=== PATIENT | male | born 1965 | race Caucasian/White ===

== ENCOUNTER → 2021-03-25 | Outpatient (CLI) | payer BC ==
[~2021-03-25] MED LIST: ATOR10TA60 PO; BUPR150T15 PO; ERTU1TAB9 PO; OMEP40CA7 PO; OXYC-325 PO
== END ==
LOC: LAB 10:02
PROVIDERS: ATTEND Surgery
DX: Z01.812 Encounter for preprocedural laboratory examination (principal); Z20.822 Contact with and (suspected) exposure to COVID-19; K40.90 Unilateral inguinal hernia, without obstruction or gangrene, not specified as recurrent
CPT/HCPCS: U0003; U0005

== ENCOUNTER 2021-03-27 09:55 | Day surgery (SDC) | payer BC ==
[~2021-03-27] VITALS: Ht 175.3 cm; Wt 100.5 kg
[~2021-03-27 09:55] MED LIST changes: +ACETAMINOPHEN 500 MG TABLET PO PRN; -ATOR10TA60 PO; +BUPIVACAINE-EPI 0.25%-1:200000 MPF 30 ML VIAL. ONE; -BUPR150T15 PO; -ERTU1TAB9 PO; +HYDROmorphone 2 MG/ML VIAL IVP PRN; +IV RINGERS,LACTATED 1000ML 1,000 ML IV SCH; +MINERAL OIL for SURGERY 10 ML VIAL. MC ONE; -OMEP40CA7 PO; -OXYC-325 PO; +PROCHLORPERAZINE 10 MG/2 ML VIAL. IVP PRN; +fentaNYL PF VIAL 100 MCG/2 ML VIAL IVP PRN
[2021-03-27] MEDS ORDERED: ATOR10TA60 PO (10:15)
[2021-03-27] MEDS ORDERED: BUPR150T15 PO (10:15)
[2021-03-27] MEDS ORDERED: ERTU1TAB9 PO (10:15)
[2021-03-27] MEDS ORDERED: OMEP40CA7 PO (10:15)
[2021-03-27 10:18] VITALS: BP 159/89
[2021-03-27] MEDS ORDERED: ROCURONIUM 50 MG/5 ML VIAL. ONE (10:25)
[2021-03-27] MEDS ORDERED: KETAMINE HCL IN NACL, ISO-OSM 50 MG/5 ML SYRINGE ONE (10:25)
[2021-03-27] MEDS ORDERED: LIDOCAINE 2% PF 5 ML VIAL. ONE (10:25)
[2021-03-27] MEDS ORDERED: PROPOFOL 10 MG/ML (20ML) VIAL. IV ONE ×2 (10:25→11:22)
[2021-03-27] MEDS ORDERED: MIDAZOLAM HCL/PF 2 MG/2 ML VIAL. ONE (10:25)
[2021-03-27] MEDS ORDERED: fentaNYL PF VIAL 250 MCG/5 ML VIAL ONE (10:34)
[2021-03-27] MEDS ORDERED: DEXAMETHASONE SOD PHOS 4 MG/ML VIAL ONE (11:24)
[2021-03-27] MEDS ORDERED: ONDANSETRON PF 4 MG/2 ML VIAL. ONE (11:24)
[2021-03-27] MEDS ORDERED: GLYCOPYRROLATE 1 MG/5 ML VIAL. ONE (11:39)
[2021-03-27] MEDS ORDERED: MINERAL OIL for SURGERY 10 ML VIAL. MC ONE (11:46)
[2021-03-27] MEDS ORDERED: NEOSTIGMINE METHYLSULFATE 5 MG/5 ML SYRINGE. ONE (11:49)
[2021-03-27] MEDS ORDERED: SEVOFLURANE 61 TO 120 MINUTES. IH ONE (11:50)
[2021-03-27] MEDS ORDERED: KETOROLAC 30 MG/ML VIAL. ONE (12:18)
--- NOTE | 2021-03-27 12:21 | PDOC4 ---
Operative Note Operative Note Date: March 272020 at 1217 Preoperative diagnosis: Right inguinal hernia possibly left Postoperative diagnosis: Right inguinal hernia and left inguinal hernia Procedure: Robotic assisted laparoscopic bilateral inguinal hernia repairs with mesh Surgeon: Dewayne Specimen: None Dictation: Patient is a 55-year-old male with complaints of right groin pain ultrasound was performed which showed a right inguinal hernia with incarcerated fat there is some concern for possible left inguinal hernia also the procedure of robotic assisted laparoscopic right inguinal hernia repair with mesh was explained to the patient detail also discussed left inguinal hernia repair if present all risk benefits were also discussed including bleeding infection injury to intra-abdominal contents possible necessitating open or further operations alternatives to this procedure also discussed with the patient who seemed to understand and gave a verbal written consent to have the procedure performed. Patient was taken to the operating room placed in the supine position general anesthesia was initiated once patient was sleeping intubated he was placed in low lithotomy positioning his abdomen was prepped and draped usual sterile fashion using ChloraPrep. An area just above the umbilicus was injected with quarter percent Marcaine with epinephrine incision was made 11 blade scalpel and a varies needle was placed within the abdomen creating pneumoperitoneum once this was complete 8 mm ventral port was placed in the 8 mm camera was placed within the abdomen and inspected it was noted there is a right inguinal hernia with incarcerated fat there is also a direct left inguinal hernia. 8 mm da Contreras ports placed in the left midabdomen and an 8 mm da Contreras port was placed in the right midabdomen the da Contreras robot is brought and docked all port sites surgeon went to the robotic console using a grasper and Endo Cris scissors the peritoneum on the right side was incised and a flap was propagated inferiorly with blunt and sharp dissection reducing the hernia contents and sac. Attention is then turned to the left side where similarly the peritoneum was incised with a electrocautery and a flap was propagated inferiorly using blunt and sharp dissection reducing the hernia sac and contents. A large Bard 3D max mesh for the right side was placed as well as a large Bard 3D max mesh for the left side both peritoneum was were closed with running 2 OV lock absorbable suture sutures removed from the abdomen. The da Contreras robot was undocked from all port sites the pneumoperitoneum was reduced all ports were removed all port sites were closed for subcuticular Monocryl Mastisol Steri-Strips and island dressings were applied. Patient was awakened and extubated in the operating room taken to recovery in stable condition all sponge instrument needle counts listed as correct estimated blood loss 10 mL PEARL RONQUILLO MD Mar 27, 2021 12:21
[2021-03-27] MEDS ORDERED: OXYC-325 PO (12:23)
--- NOTE | 2021-03-27 12:24 | DISCH ---
DISCHARGE INSTRUCTIONS Condition on Discharge Condition on Discharge: Stable Activity After Discharge Activity Instructions for Disc: Avoid exertion Other activity instructions: No lifting more than 20 pounds for 2 weeks Diet after Discharge Diet after Discharge: Regular Wound Incision Care Other wound/incision instructi: Cheyanne shower in 24 hours Contacting the [facility] after DC Call your doctor for: If your condition worsens Follow-Up Follow up with: Dr. Ronquillo in 2 weeks PEARL RONQUILLO MD Mar 27, 2021 12:24
[2021-03-27] MEDS ORDERED: MORPHINE SULFATE 2 MG/ML INJ. ONE (12:33)
[2021-03-27] MEDS ORDERED: PROCHLORPERAZINE 10 MG/2 ML VIAL. ONE (12:33)
[2021-03-27] MEDS: MORPHINE SULFATE 2 MG/ML INJ. IVP PRN ×2 (12:42→12:54)
[2021-03-27] MEDS ORDERED: HYDROcodone/APAP 5/325MG 1 TAB TABLET PO ONE (13:00)
[2021-03-27 13:16] VITALS: BP 109/69
== END 2021-03-27 13:37 | disposition home or self-care (01) ==
LOC: SURG 09:55
PROVIDERS: ATTEND Surgery
DX: K40.00 Bilateral inguinal hernia, with obstruction, without gangrene, not specified as recurrent (principal); E78.00 Pure hypercholesterolemia, unspecified; E11.9 Type 2 diabetes mellitus without complications; E66.9 Obesity, unspecified; K21.9 Gastro-esophageal reflux disease without esophagitis; Z87.891 Personal history of nicotine dependence; Z79.899 Other long term (current) drug therapy; Z98.890 Other specified postprocedural states; Z88.0 Allergy status to penicillin; Z68.32 Body mass index [BMI] 32.0-32.9, adult
CPT/HCPCS: 49650; A4364; A4930; A6219; C1781; J0780; J1100; J1885; J1956; J2250; J2270; J2405; J2704; J2710; J3010; J3490; S2900; A4657